=== PATIENT | female | born 1960 | race Caucasian/White ===

== ENCOUNTER 2024-12-04 09:45 | Observation (INO) ==
[2024-12-04 11:23] LABS: Basophils # (auto) 0.06 K/uL (0.00-0.20); Basophils % (auto) 0.4 %; Eosinophils # (auto) 0.02 K/uL (0.00-0.50); Eosinophils % (auto) 0.1 %; Hematocrit (blood only) 37.5 % (37.0-47.0); Hemoglobin 11.7 g/dl (12.0-16.0); Immature Granulocytes # (auto) 0.08 K/uL (0.01-0.20); Immature Granulocytes % (auto) 0.5 %; Lymphocytes # (auto) 0.88 K/uL (1.20-3.40); Mean Corpuscular Hemoglobin 25.5 pg (25.0-34.0); Mean Corpuscular Hgb Conc 31.2 g/dL (32.0-36.0); Mean Corpuscular Volume 81.7 fL (80.0-100.0); Mean Platelet Volume 8.3 fL (9.4-12.4); Monocytes # (auto) 0.61 K/uL (0.11-0.59); Monocytes % (auto) 4.2 %; Neutrophils # (auto) 12.95 K/uL (1.40-6.50); Neutrophils % (auto) 88.8 %; Platelet Count 716 K/uL (130-400); RDW Coefficient of Variation 13.1 % (11.5-14.5); RDW Standard Deviation 38.5 fL (36.4-46.3); Red Blood Count 4.59 M/uL (4.20-5.40)
[2024-12-04 11:35] LABS: Albumin Globulin Ratio 1.1 (0.9-2); Albumin Level 3.5 gm/dl (3.4-5.0); BUN Creatinine Ratio 15.9 (10-20); Bilirubin,Total 0.6 mg/dl (0.2-1.0); Creatinine Clr Calc Pharmacy 54.1 ml/min; Globulin 3.1 gm/dl (2.5-4.0); Potassium 4.1 mmol/L (3.5-5.1); Total Protein 6.6 gm/dl (6.0-8.3)
--- NOTE | 2024-12-04 12:26 | Emergency Department Note ---
Impression & Plan Peritoneal carcinomatosis, Abdominal ascites, Type II endoleak of aortic graft, History of AAA (abdominal aortic aneurysm) repair ED Provider Note NAME: MARK HANSEN AGE: 64 SEX: F : 1960 ARRIVES VIA: Walk-In INFORMANT: Patient, Daughter ED PROVIDER(S): Drew Garcia MD CHIEF COMPLAINT: Abdominal swelling MEDICAL DECISION MAKING: Patient presents due to concern for abdominal swelling. IV was established and blood work was obtained along with CT abdomen pelvis. The patient's blood work shows a white count of 14 with an mild anemia hemoglobin 11.7 with a platelet count of 716. Kidney function unremarkable. Patient's CT abdomen and pelvis does show concern for ascites as well as carcinomatosis and possible right adnexal ovarian lesion which may represent primary tumor. Also associated bifurcated aortic iliac stent in place no evidence of rupture and suspected type II endoleak. Patient reportedly does have a known history of the type II endoleak. I did speak with on-call vascular surgeon Dr. Winters who stated less there is enlargement of the prior sac this does not require any acute intervention or transfer. I did convey the findings to the patient and patient's daughter at bedside and given the new diagnosis would benefit from admission. I did speak with the on-call hospitalist service BLANCHE Plummer PA-C and Dr. Clemente and the patient was admitted to the medicine service. Discussion w/ other healthcare providers: Dr. Winters vascular surgery BLANCHE Plummer PA-C and Dr. Carrasco inpatient medicine service Prior /Outside records reviewed: I did review a CT angiography of the abdomen and pelvis that was completed on November 29 with report noting endovascular repair of infrarenal AAA with a type II endoleak and moderate ascites. Differential diagnosis: Appendicitis, ovarian cyst, ovarian torsion, ectopic , TOA, PID, diverticulitis, UTI, obstruction, inflammatory bowel disease, renal colic, PUD, pancreatitis, biliary pathology, hernia, volvulus, constipation, as well as other pathologies were considered. Diagnostics, as interpreted by me: ECG: Sinus tachycardia, rate of 101, normal intervals. Cardiac monitoring: An order was placed for continuous cardiac monitoring. The monitor shows a rate of 85 with sinus rhythm. Patient was placed on pulse oximetry Medical decision rules: None Imaging studies: I informally interpreted the patient's CT abdomen pelvis that showed concern for abdominal ascites with formal report to follow. HPI: Patient presents due to concern for abdominal swelling. The patient had been seen in [place] and was referred to a larger department but did not come at that time. The patient states that she has been having worsening diarrhea. No reported falls or trauma. The daughter is at bedside states that the patient has had increasing abdominal swelling. No prior history of alcohol use or liver disease. No prior paracentesis. Patient had been seen at [facility] in [place] on Wednesday and was suggested to go to another emergency department. Patient states that she is on chronic MiraLAX. Patient does report a prior history of a AAA status postrepair which she says "leaks." PAST MEDICAL HISTORY: See Below PAST SURGICAL HISTORY: See Below SOCIAL HISTORY: See Below HOME MEDICATIONS: See Below ALLERGIES: See Below VITALS: See Below PHYSICAL EXAMINATION: GENERAL: NAD, non-toxic. Wearing glasses. EYE EXAM: Normal conjunctiva. PERRL, no anisocoria and EOM's grossly intact w/o pain. OROPHARYNX: Moist mucus membranes, grossly normal dentition. NECK: Trachea midline, no stridor. Supple, no nuchal rigidity, no adenopathy, non-tender. No signs of meningismus. FROM of the neck with good chin to chest and neck extension. LUNGS: Clear to auscultation. Normal chest wall mechanics. HEART: NSR, no MRG. ABDOMEN: Significant abdominal distention, soft abdomen, positive fluid wave. BACK: No CVA TTP. SKIN: No rashes and no bruising. UPPER EXTREMITIES: Upper extremities are grossly normal. LOWER EXTREMITIES: Grossly normal, no edema. NEURO EXAM: A&O x3, cranial nerves II-XII grossly intact, normal speech, moves all 4 extremities. Past Med/Surg History Problem List (Updated 12/05/24 @ 20:43 by Drew Garcia MD) History of AAA (abdominal aortic aneurysm) repair (Acute) Peritoneal carcinomatosis (Acute) Type II endoleak of aortic graft (Acute) Abdominal ascites (Acute) Social History Smoking Status: Former smoker Tobacco Type: Cigarettes Hx Alcohol Use: No Hx Substance Use: No Preferred Language: Ivorian Communication Ability: Effective Promotions Executive Producer Required: No Beliefs That Will Affect Care: None Current Living Situation: Family Current Living Situation Comment: pt states she is currently living with her daughter, normally lives alone Feels Safe at Home: Yes Safety Concerns: Feels Safe At This Time Assistive Devices: None Allergies Allergies Allergy/AdvReac Type Severity Reaction Status Date / Time Sulfa (Sulfonamide AdvReac Unknown Verified 12/04/24 15:32 Antibiotics) Home Meds Home Medications Medication Instructions Recorded Confirmed amlodipine 2.5 mg tablet 2.5 mg PO QPM 12/04/24 12/04/24 clopidogrel 75 mg tablet 75 mg PO DAILY 12/04/24 12/04/24 duloxetine 60 mg capsule,delayed 60 mg PO DAILY 12/04/24 12/04/24 release lorazepam 0.5 mg tablet 0.25 - 0.5 mg PO BID PRN Anxiety 12/04/24 12/04/24 losartan 100 mg tablet 100 mg PO DAILY 12/04/24 12/04/24 metoprolol tartrate 25 mg tablet 25 mg PO BID 12/04/24 12/04/24 rosuvastatin 20 mg tablet 20 mg PO DAILY 12/04/24 12/04/24 Results & Data (ED) Vital Signs Vital Signs - 24 hr 12/04/24 09:57 12/04/24 11:51 12/04/24 11:54 Temperature 36.9 C Temperature Source Oral Pulse Rate 72 Pulse Rate [Right Finger] 98 H Respiratory Rate 20 20 Respiratory Effort / Characteristics Non-Labored Spontaneous Non-Labored Spontaneous Respiratory Depth Normal Normal Respiratory Pattern Regular Regular Blood Pressure 139/88 Blood Pressure [Right Arm] 156/91 H Blood Pressure Mean 105 Blood Pressure Mean [Right Arm] 112 Pulse Oximetry 99 99 Oxygen Delivery Method Room Air Room Air Room Air Sepsis Recent Fever Within 48 Hours No Sepsis New/Unexplained Change in Mental Status N/A Sepsis Action Taken by Nursing No Action Required 12/04/24 11:58 Temperature Temperature Source Pulse Rate 97 H Pulse Rate [Right Finger] Respiratory Rate Respiratory Effort / Characteristics Respiratory Depth Respiratory Pattern Blood Pressure Blood Pressure [Right Arm] Blood Pressure Mean Blood Pressure Mean [Right Arm] Pulse Oximetry Oxygen Delivery Method Sepsis Recent Fever Within 48 Hours Sepsis New/Unexplained Change in Mental Status Sepsis Action Taken by Assisted Medications Current Medication List: was personally reviewed by me Laboratory Data Attestation: I reviewed the patient's lab results. 12/05/24 06:59 12/05/24 06:59 Lab Results 12/04/24 12/04/24 Range/Units 10:57 15:54 WBC 14.60 H (4.8-10.8) K/ul RBC 4.59 (4.20-5.40) M/uL Hgb 11.7 L (12.0-16.0) g/dl Hct 37.5 (37.0-47.0) % MCV 81.7 (80.0-100.0) fL MCH 25.5 (25.0-34.0) pg MCHC 31.2 L (32.0-36.0) g/dL RDW Std Deviation 38.5 (36.4-46.3) fL RDW Coeff of Sera 13.1 (11.5-14.5) % Plt Count 716 H (130-400) K/uL MPV 8.3 L (9.4-12.4) fL Immature Gran % (Auto) 0.5 % Neut % (Auto) 88.8 % Lymph % (Auto) 6.0 % [place] % (Auto) 4.2 % Eos % (Auto) 0.1 % Baso % (Auto) 0.4 % Neut # (Auto) 12.95 H (1.40-6.50) K/uL Lymph # (Auto) 0.88 L (1.20-3.40) K/uL [place] # (Auto) 0.61 H (0.11-0.59) K/uL Eos # (Auto) 0.02 (0.00-0.50) K/uL Baso # (Auto) 0.06 (0.00-0.20) K/uL Immature Gran # (Auto) 0.08 (0.01-0.20) K/uL Sodium 137 (136-145) mmol/L Potassium 4.1 (3.5-5.1) mmol/L Chloride 101 (98-107) mmol/L Carbon Dioxide 25 (21-32) mmol/L Anion Gap 11 (3-11) BUN 13 (6-23) mg/dl Creatinine 0.82 (0.6-1.2) mg/dl Est Cr Clr Drug Dosing 54.1 ml/min eGFR 79.33 BUN/Creatinine Ratio 15.9 (10-20) Glucose 93 (70-99(Fasting)) mg/dl Calcium 9.0 (8.6-10.3) mg/dl Total Bilirubin 0.6 (0.2-1.0) mg/dl AST 17 (13-39) U/L ALT 8 (7-52) U/L Alkaline Phosphatase 89 (34-104) U/L Total Protein 6.6 (6.0-8.3) gm/dl Albumin 3.5 (3.4-5.0) gm/dl Globulin 3.1 (2.5-4.0) gm/dl Albumin/Globulin Ratio 1.1 (0.9-2) CA 125 Antigen Cancelled Administered Medications Amlodipine Besylate (Amlodipine Besylate 5 Mg Tab) 2.5 mg PO QPM JAX Stop: 01/03/25 20:59 Last Admin: 12/05/24 20:10 Dose: 2.5 mg Documented By: Admin: 12/04/24 21:24 Dose: 2.5 mg Documented By: LYNDA Clopidogrel Bisulfate (Clopidogrel Bisulfate 75 Mg Tab) 75 mg PO DAILY JAX Stop: 01/04/25 08:59 Last Admin: 12/05/24 08:15 Dose: 75 mg Documented By: ROBERTO Duloxetine HCl (Duloxetine Hcl 60 Mg Cap) 60 mg PO DAILY JAX Stop: 01/04/25 08:59 Last Admin: 12/05/24 08:15 Dose: 60 mg Documented By: ROBERTO Lorazepam (Lorazepam 0.5 Mg Tab) 0.5 mg PO BID PRN PRN Reason: Anxiety Stop: 01/03/25 18:29 Last Admin: 12/05/24 10:51 Dose: 0.5 mg Documented By: Admin: 12/04/24 22:56 Dose: 0.5 mg Documented By: EARLE Losartan Potassium (Losartan Potassium 50 Mg Tab) 100 mg PO DAILY JAX Stop: 01/04/25 08:59 Last Admin: 12/05/24 08:16 Dose: 100 mg Documented By: ROBERTO Metoprolol Tartrate (Metoprolol Tartrate 25 Mg Tab) 25 mg PO BID JAX Stop: 01/03/25 20:59 Last Admin: 12/05/24 20:10 Dose: 25 mg Documented By: Admin: 12/05/24 08:15 Dose: 25 mg Documented By: Admin: 12/04/24 21:24 Dose: 25 mg Documented By: LYNDA Rosuvastatin Calcium (Rosuvastatin Calcium 20 Mg Tab) 20 mg PO DAILY JAX Stop: 01/04/25 08:59 Last Admin: 12/05/24 08:15 Dose: 20 mg Documented By: ROBERTO Discontinued Medications Sodium Chloride (Nss) 1,000 mls @ 999 mls/hr IV .Q1H1M ONE Stop: 12/04/24 13:57 Last Infusion: 12/04/24 14:38 Dose: Infused Documented By: Admin: 12/04/24 13:21 Dose: 999 mls/hr Documented By: BRIJESH Ioversol (Optiray 320 100ml) 93 ml IV ONCE ONE Stop: 12/04/24 13:29 Last Admin: 12/04/24 13:29 Dose: 93 ml Documented By: MING Ioversol (Optiray 320 100ml) 93 ml IV ONCE ONE Stop: 12/05/24 20:26 Last Admin: 12/05/24 20:26 Dose: 93 ml Documented By: MYRIAM Ondansetron HCl (Ondansetron Inj 2 Mg/Ml 2 Ml Vial) 4 mg IV NOW STA Stop: 12/05/24 10:45 Last Admin: 12/05/24 10:51 Dose: 4 mg Documented By: ROBERTO Imaging Data Radiologist's Impression: Abdomen/Pelvis CT 12/04/24 12:56 CT OF THE ABDOMEN AND PELVIS WITH CONTRAST CLINICAL HISTORY: Abdominal distention. COMPARISON STUDY: None. TECHNIQUE: Following IV administration of 93 mL of Optiray, axial images of the abdomen and pelvis were obtained from the lung bases to the proximal femurs. Images were reviewed in the axial, sagittal, and coronal planes. IV contrast was administered without complication. Automated exposure control was utilized for the study. A dose lowering technique was utilized adhering to the principles of ALARA. CT DOSE: 600.03 mGy.cm FINDINGS: A moderate sized hiatal hernia contains ascites. Large volume of abdominal and pelvic ascites is noted. Extensive peritoneal and omental nodularity is present with omental caking. A right adnexal enhancing mass measures 5.2 x 4.1 cm. There is no hydronephrosis. There is no evidence for a bowel obstruction. Multifocal left renal scarring is present. A 6 mm hypodense lateral segment hepatic lesion is likely benign. There is no biliary or pancreatic ductal dilatation. The spleen, adrenal glands and pancreas are unremarkable. Bifurcated aortoiliac stent graft is in place. There is no evidence for rupture. The aneurysm sac measures 5.3 x 4.9 cm in dimension. Hyperdense foci within the aneurysm sac favor an endoleak. No suspicious lesions are identified within the visualized skeletal structures. IMPRESSION: 1. Large volume ascites. Numerous enhancing peritoneal nodules and omental caking. The findings are consistent with peritoneal carcinomatosis. 5.2 x 4.1 cm rim-enhancing right adnexal/ovarian lesion may represent the primary tumor. Oncology consultation is recommended. 2. No evidence for a bowel obstruction. No hydronephrosis. 3. Bifurcated aortoiliac stent graft in place. No evidence for rupture. Suspected type II endoleak. ACT 112: Positive. There are findings on this exam that require communication between the performing entity and the patient following Patient Test Result Information Act ([place] Act 112) guidelines. Electronically signed by: Bal Freire M.D. 12/04/2024 1:58 PM Chest X-Ray 12/04/24 15:54 Chest radiograph, one view History: Chest pain Comparison: None Findings: Single AP view of the chest performed. No focal consolidation or pleural effusion. No pneumothorax. The cardiomediastinal silhouette is within normal limits. Normal pulmonary vascularity. No evidence for lymphadenopathy. No visualized bony or soft tissue abnormality. Impression: Normal chest radiograph Electronically signed by Mikal Wade 12-04-2024 4:33 PM Discharge Plan Visit Data Chief Complaint: GI Assessment Stated Complaint: ABD DISTENTION, HAS ASCITES ED Provider: Drew Garcia Discharge Problem: Peritoneal carcinomatosis, Abdominal ascites, Type II endoleak of aortic graft, History of AAA (abdominal aortic aneurysm) repair Patient Disposition: Admitted As Inpatient Discharge Instructions Interventions: ED Discharge Assessment Last Done: 12/04/24 18:30 Discharge Problem: Abdominal ascites Qualifiers: Ascites type: malignant Qualified Code(s): R18.0 - Malignant ascites
[2024-12-04] MEDS: SODIUM CHLORIDE 0.9% 1,000 ML IV ONE (13:21)
[2024-12-04] MEDS: OPTIRAY 320 100ml IV ONE (13:29)
--- NOTE | 2024-12-04 13:59 | CT Scan Report ---
CT OF THE ABDOMEN AND PELVIS WITH CONTRAST CLINICAL HISTORY: Abdominal distention. COMPARISON STUDY: None. TECHNIQUE: Following IV administration of 93 mL of Optiray, axial images of the abdomen and pelvis we re obtained from the lung bases to the proximal femurs. Images were reviewed in the axial, sagittal, and coronal planes. IV contrast was administered without complication. Automated exposure control wa s utilized for the study. A dose lowering technique was utilized adhering to the principles of ALARA . CT DOSE: 600.03 mGy.cm FINDINGS: A moderate sized hiatal hernia contains ascites. Large volume of abdominal and pelvic ascit es is noted. Extensive peritoneal and omental nodularity is present with omental caking. A right adne xal enhancing mass measures 5.2 x 4.1 cm. There is no hydronephrosis. There is no evidence for a patrick l obstruction. Multifocal left renal scarring is present. A 6 mm hypodense lateral segment hepatic le tiffany is likely benign. There is no biliary or pancreatic ductal dilatation. The spleen, adrenal gland s and pancreas are unremarkable. Bifurcated aortoiliac stent graft is in place. There is no evidence for rupture. The aneurysm sac measures 5.3 x 4.9 cm in dimension. Hyperdense foci within the aneurysm sac favor an endoleak. No suspicious lesions are identified within the visualized skeletal structure s. IMPRESSION: 1. Large volume ascites. Numerous enhancing peritoneal nodules and omental caking. The findings are c onsistent with peritoneal carcinomatosis. 5.2 x 4.1 cm rim-enhancing right adnexal/ovarian lesion may represent the primary tumor. Oncology consultation is recommended. 2. No evidence for a bowel obstruction. No hydronephrosis. 3. Bifurcated aortoiliac stent graft in place. No evidence for rupture. Suspected type II endoleak. ACT 112: Positive. There are findings on this exam that require communication between the performing entity and the patient following Patient Test Result Information Act ([place] Act 112) guidelines. Electronically signed by: Bal Freire M.D. 12/04/2024 1:58 PM
--- NOTE | 2024-12-04 15:15 | History & Physical Report ---
Date of Service December 04, 2024 Assessment & Plan (1) Peritoneal carcinomatosis: (2) Abdominal ascites: (3) Type II endoleak of aortic graft: (4) History of AAA (abdominal aortic aneurysm) repair: Plan Edie is a pleasant 64-year-old female with PMH of HTN, HLD, TIA x 2 (on Plavix), and AAA repair. She presented on 12/04 for ascites. Patient was at [facility] in [place] yesterday on 12/03, but told to come to a larger ED because they could not treat her there. Patient has had "fluid buildup" in her stomach since early October. She is lost her appetite, and has had significant weight loss. Lost 30 pounds over the past year; 10 to 15 pounds over the past few weeks. She was also had vaginal spotting. Daughter (Violeta) at bedside reports that, since , her stomach has "doubled in size". #Abdominal ascites/peritoneal carcinomatosis Clinically, patient denies any abdominal pain on admission; low concern for SBP, however elevated WBC at 14 on admission A/P CT revealed abdominal ascites and findings consistent with peritoneal carc inomatosis; ovarian lesion might represent primary tumor Patient/daughter report she was scanned in the ED at [facility] this week Prior to this, no known h/o malignancy Oncology consult appreciated Supportive care CXR, EKG ordered, pending Coag panel ordered, pending CA 125 level ordered, pending Therapeutic/diagnostic IR paracentesis planned for the morning of 12/05 N.p.o. at midnight #Endoleak/history of AAA repair AAA repair at [facility] in August 2022 A/P CT revealed bifurcated aortoiliac stent graft without evidence of rupture; suspected type II endoleak ED did reach out to vascular surgery, who confirmed no acute intervention at this time [facility] Full code Regular diet, then n.p.o. at midnight VTE PPx: SCDs prior to paracentesis History of Present Illness Chief Complaint: GI assessment Primary Care Provider: Ashley Dueñas PA-C Edie is a pleasant 64-year-old female with PMH of HTN, HLD, TIA x 2 (on Plavix), and AAA repair. She presented on 12/04 for ascites. Patient was at [facility] in [place] yesterday on 12/03, but told to come to a larger ED because they could not treat her there. Patient has had "fluid buildup" in her stomach since early October. She is lost her appetite, and has had significant weight loss. Lost 30 pounds over the past year; 10 to 15 pounds over the past few weeks. She was also had vaginal spotting. Daughter (Violeta) at bedside reports that, since , her stomach has "doubled in size". Patient also has history of AAA in August 2022 at [facility] with Dr. Phelps; has a known endoleak; she has been told in the past that it is "leaking but stable". Additional symptoms include trouble eating and drinking, night sweats, diarrhea, and abdominal pressure. Patient took her regular morning medicines today; no recent change in medications. She was previously on aspirin for history of TIAs, but had to stop taking aspirin due to bruising; she currently takes Plavix. No prior family history of cancer. Patient denies alcohol use. She is a former smoker, but quit in 2015. Patient is hypertensive at 141/85 and tachycardic around 100 bpm at time of admission; vitals otherwise stable. ED course: NSS 1000 mL IV ROS: Patient endorses night-sweats, weight loss (30lb over months; 10-15lb over 2 weeks), no appetite, abdominal pressure, diarrhea (which patient attributes to laxative), difficulty voiding, and spotting. Patient denies chest pain, SOB, cough, pleuritic CP, cough, abdominal pain, N/V, blood in urine/stool, saddle anesthesia, urinary incontinence, or numbness/tingling in the arms or legs. Allergies Allergy/AdvReac Type Severity Reaction Status Date / Time Sulfa (Sulfonamide AdvReac Unknown Verified 12/04/24 15:32 Antibiotics) Home Medications Medication Instructions Recorded Confirmed Type amlodipine 2.5 mg tablet 2.5 mg PO QPM 12/04/24 12/04/24 History clopidogrel 75 mg tablet 75 mg PO DAILY 12/04/24 12/04/24 History duloxetine 60 mg capsule,delayed 60 mg PO DAILY 12/04/24 12/04/24 History release lorazepam 0.5 mg tablet 0.25 - 0.5 mg PO BID PRN Anxiety 12/04/24 12/04/24 History losartan 100 mg tablet 100 mg PO DAILY 12/04/24 12/04/24 History metoprolol tartrate 25 mg tablet 25 mg PO BID 12/04/24 12/04/24 History rosuvastatin 20 mg tablet 20 mg PO DAILY 12/04/24 12/04/24 History Past Med/Surg History Problem List (Updated 12/04/24 @ 16:28 by True Plummer PA-C) History of AAA (abdominal aortic aneurysm) repair Peritoneal carcinomatosis Type II endoleak of aortic graft Abdominal ascites Social History Smoking Status: Former smoker Tobacco Type: Cigarettes Feels Safe at Home: Yes Review of Systems Review of Systems: See HPI above Physical Exam Physical Exam: General: no acute distress; pleasant affect; tearful; daughter at bedside; non- toxic appearing; frail appearing; cooperative; SpO2 97% on RA HEENT: normocephalic, atraumatic; no scleral icterus; PERRLA; vision and hearing grossly intact Neck: supple; no lymphadenopathy; trachea midline Skin: warm, dry without signs of tenting; no cyanosis; no rashes, bruising, lesions, or erythema noted CV: chest wall NTP; RRR; S1/S2 normal; no murmurs/rubs/gallops; pulses intact and symmetric at radial, DP, and PT Lungs: no acute respiratory distress; symmetrical chest wall expansion; clear breath sounds across all lung hadley w/o adventitious sounds; no wheezing ABD: Soft, NTP in all 4 quadrants; BS present; no rebound/guarding; distention secondary to ascites; positive fluid wave on exam; no rashes or bruising appreciated on the abdomen or flanks bilaterally MSK: no tics or fasciculations; no edema noted in the LEs b/l, nonerythematous Neuro: A&Ox3; normal mood and affect; fluent speech; no focal deficits; sensation grossly intact in the LEs b/l Results & Data Results & Data Vital Signs (Past 12 Hours) Vital Signs Temp Pulse Pulse Resp BP BP Pulse Ox 12/04/24 15:00 99 H 22 141/85 H 97 12/04/24 14:00 97 H 23 137/83 91 12/04/24 13:36 100 H 21 12/04/24 13:12 98 H 17 126/86 98 12/04/24 13:00 98 H 22 126/86 96 12/04/24 11:58 97 H 12/04/24 11:54 12/04/24 11:51 98 H 20 156/91 H 99 12/04/24 09:57 36.9 C 72 20 139/88 99 O2 Del Method 12/04/24 15:00 Room Air 12/04/24 14:00 Room Air 12/04/24 13:36 12/04/24 13:12 12/04/24 13:00 Room Air 12/04/24 11:58 12/04/24 11:54 Room Air 12/04/24 11:51 Room Air 12/04/24 09:57 Room Air Laboratory Results Abnormal lab results 12/04/24 Range/Units 10:57 WBC 14.60 H (4.8-10.8) K/ul Hgb 11.7 L (12.0-16.0) g/dl MCHC 31.2 L (32.0-36.0) g/dL Plt Count 716 H (130-400) K/uL MPV 8.3 L (9.4-12.4) fL Neut # (Auto) 12.95 H (1.40-6.50) K/uL Lymph # (Auto) 0.88 L (1.20-3.40) K/uL [place] # (Auto) 0.61 H (0.11-0.59) K/uL Diagnostic Findings Abdomen/Pelvis CT 12/04/24 12:56 CT OF THE ABDOMEN AND PELVIS WITH CONTRAST CLINICAL HISTORY: Abdominal distention. COMPARISON STUDY: None. TECHNIQUE: Following IV administration of 93 mL of Optiray, axial images of the abdomen and pelvis were obtained from the lung bases to the proximal femurs. Images were reviewed in the axial, sagittal, and coronal planes. IV contrast was administered without complication. Automated exposure control was utilized for the study. A dose lowering technique was utilized adhering to the principles of ALARA. CT DOSE: 600.03 mGy.cm FINDINGS: A moderate sized hiatal hernia contains ascites. Large volume of abdominal and pelvic ascites is noted. Extensive peritoneal and omental nodularity is present with omental caking. A right adnexal enhancing mass measures 5.2 x 4.1 cm. There is no hydronephrosis. There is no evidence for a bowel obstruction. Multifocal left renal scarring is present. A 6 mm hypodense lateral segment hepatic lesion is likely benign. There is no biliary or pancreatic ductal dilatation. The spleen, adrenal glands and pancreas are unremarkable. Bifurcated aortoiliac stent graft is in place. There is no evidence for rupture. The aneurysm sac measures 5.3 x 4.9 cm in dimension. Hyperdense foci within the aneurysm sac favor an endoleak. No suspicious lesions are identified within the visualized skeletal structures. IMPRESSION: 1. Large volume ascites. Numerous enhancing peritoneal nodules and omental caking. The findings are consistent with peritoneal carcinomatosis. 5.2 x 4.1 cm rim-enhancing right adnexal/ovarian lesion may represent the primary tumor. Oncology consultation is recommended. 2. No evidence for a bowel obstruction. No hydronephrosis. 3. Bifurcated aortoiliac stent graft in place. No evidence for rupture. Suspected type II endoleak. ACT 112: Positive. There are findings on this exam that require communication between the performing entity and the patient following Patient Test Result Information Act ([place] Act 112) guidelines. Electronically signed by: Bal Freire M.D. 12/04/2024 1:58 PM ECG Additional Comments: ECG revealed Code Status & VTE Plan Code Status Full code VTE Prophylaxis Plan VTE Prophylaxis will be ordered: Yes Supervising Physician Co-Signing Physician Notes The patient was seen by me. The chart was reviewed. Case discussed with ALDO Szymanski. Agree with assessment and plan PG Care Time/CCT Total # of Minutes Spent Total Time Spent with Patient: Total time spent is greater than 50% in coordination of care (as documented) at patient's floor/unit and/or counseling patient: [place] [address] INT INP/OBS CARE 3/75MIN Patient Type New Medical Decision Making High Complexity Diagnoses Peritoneal carcinomatosis C78.6 Abdominal ascites R18.8 Type II endoleak of aortic graft I97.89 History of AAA (abdominal aortic aneurysm) repair Z98.890
--- NOTE | 2024-12-04 16:33 | XRay Report ---
Chest radiograph, one view History: Chest pain Comparison: None Findings: Single AP view of the chest performed. No focal consolidation or pleural effusion. No pneumothorax. The cardiomediastinal silhouette is within normal limits. Normal pulmonary vascularity. No evidence for lymphadenopathy. No visualized bony or soft tissue abnormality. Impression: Normal chest radiograph Electronically signed by Mikal Wade 12-04-2024 4:33 PM
[2024-12-04 17:34] LABS: INR 1.1 (0.9-1.1); Partial Thromboplastin Ratio 1.1; Partial Thromboplastin Time 29 Seconds (21-31); Prothrombin Time 11.6 Seconds (9.0-12.0)
[2024-12-04] MEDS ORDERED: ACETAMINOPHEN 325 MG TAB PO PRN (18:30)
[2024-12-04] MEDS: METOPROLOL TARTRATE 25 MG TAB PO SCH (21:24)
[2024-12-04] MEDS: amLODIPine BESYLATE 5 MG TAB PO SCH (21:24)
[2024-12-04] MEDS: LORazepam 0.5 MG TAB PO PRN (22:56)
[2024-12-05 07:19] LABS: Basophils # (auto) 0.06 K/uL (0.00-0.20); Basophils % (auto) 0.5 %; Eosinophils # (auto) 0.08 K/uL (0.00-0.50); Eosinophils % (auto) 0.7 %; Hematocrit (blood only) 32.2 % (37.0-47.0); Hemoglobin 10.5 g/dl (12.0-16.0); Immature Granulocytes # (auto) 0.05 K/uL (0.01-0.20); Immature Granulocytes % (auto) 0.4 %; Lymphocytes # (auto) 1.12 K/uL (1.20-3.40); Lymphocytes % (auto) 9.7 %; Mean Corpuscular Hemoglobin 26.5 pg (25.0-34.0); Mean Corpuscular Hgb Conc 32.6 g/dL (32.0-36.0); Mean Corpuscular Volume 81.3 fL (80.0-100.0); Mean Platelet Volume 8.3 fL (9.4-12.4); Monocytes # (auto) 0.82 K/uL (0.11-0.59); Monocytes % (auto) 7.1 %; Neutrophils # (auto) 9.45 K/uL (1.40-6.50); Neutrophils % (auto) 81.6 %; Platelet Count 611 K/uL (130-400); RDW Standard Deviation 38.4 fL (36.4-46.3); Red Blood Count 3.96 M/uL (4.20-5.40); White Blood Count 11.58 K/ul (4.8-10.8)
--- NOTE | 2024-12-05 07:54 | Oncology Consultation ---
Date of Consultation December 05, 2024 Assessment & Plan (1) Peritoneal carcinomatosis: (2) Abdominal ascites: Plan 64-year-old female with suspected ovarian cancer. Awaiting cytology results from paracentesis performed today. CA125 also pending. CEA within normal limits. -Obtain CT chest for full staging. -If cytology confirms ovarian cancer and CT chest does not demonstrate metastasis she will need to be evaluated by [employer] oncology but in the meantime I will plan to start neoadjuvant chemotherapy prior to cytoreductive surgery. Patient and daughter agreed with above plan. I will set her up for outpatient follow-up with me History of Present Illness Reason for Consultation: Suspected ovarian cancer Attending Physician: Beck Carrasco MD History of Present Illness 64-year-old female admitted to [facility] on 12/04/2024 after presenting with weight loss, abdominal distention due to ascites and fatigue. CT abdomen and pelvis on 12/04/2024 revealed large volume ascites with numerous enhancing peritoneal nodules and omental caking consistent with peritoneal carcinomatosis, 5.2 x 4.1 cm rim-enhancing right adnexal/ovarian lesion may represent primary tumor, bifurcated aortoiliac stent graft in place with no evidence of rupture, suspected type II endoleak. She underwent diagnostic and therapeutic paracentesis earlier today with removal of 3 L of ascitic fluid. She states that she is feeling much better since she had paracentesis. Denies any family history of breast, ovarian or prostate malignancy. Allergies Allergy/AdvReac Type Severity Reaction Status Date / Time Sulfa (Sulfonamide AdvReac Unknown Verified 12/04/24 15:32 Antibiotics) Home Medications Medication Instructions Recorded Confirmed Type amlodipine 2.5 mg tablet 2.5 mg PO QPM 12/04/24 12/04/24 History clopidogrel 75 mg tablet 75 mg PO DAILY 12/04/24 12/04/24 History duloxetine 60 mg capsule,delayed 60 mg PO DAILY 12/04/24 12/04/24 History release lorazepam 0.5 mg tablet 0.25 - 0.5 mg PO BID PRN Anxiety 12/04/24 12/04/24 History losartan 100 mg tablet 100 mg PO DAILY 12/04/24 12/04/24 History metoprolol tartrate 25 mg tablet 25 mg PO BID 12/04/24 12/04/24 History rosuvastatin 20 mg tablet 20 mg PO DAILY 12/04/24 12/04/24 History Patient History Social History Smoking Status: Former smoker Tobacco Type: Cigarettes Hx Alcohol Use: No Hx Substance Use: No Preferred Language: Sami Communication Ability: Effective [employer] Required: No Beliefs That Will Affect Care: None Current Living Situation: Family Current Living Situation Comment: pt states she is currently living with her daughter, normally lives alone Feels Safe at Home: Yes Safety Concerns: Feels Safe At This Time Assistive Devices: None Results & Data Vital Signs (Past 12 Hours) Vital Signs Temp Pulse Pulse Resp BP Pulse Ox O2 Del Method 12/05/24 07:44 36.8 C 107 H 16 144/85 H 93 Room Air 12/05/24 05:43 100 H 12/05/24 03:34 36.9 C 100 H 17 132/83 95 Room Air 12/04/24 23:12 36.8 C 83 18 165/89 H 97 Room Air 12/04/24 23:07 84 12/04/24 22:00 80 18 145/91 H 96 Room Air 12/04/24 20:00 37.1 C 98 H 18 148/90 H 94 Room Air
[2024-12-05 08:06] LABS: INR 1.1 (0.9-1.1); Prothrombin Time 11.5 Seconds (9.0-12.0)
[2024-12-05 08:12] LABS: BUN Creatinine Ratio 17.2 (10-20); Calcium 8.5 mg/dl (8.6-10.3); Creatinine Clr Calc Pharmacy 69.3 ml/min; Potassium 3.7 mmol/L (3.5-5.1)
[2024-12-05] MEDS: ROSUVASTATIN CALCIUM 20 MG TAB PO SCH (08:15)
[2024-12-05] MEDS: CLOPIDOGREL BISULFATE 75 MG TAB PO SCH (08:15)
[2024-12-05] MEDS: DULoxetine HCL 60 MG CAP PO SCH (08:15)
[2024-12-05] MEDS: LOSARTAN POTASSIUM 50 MG TAB PO SCH (08:16)
[2024-12-05] MEDS: ONDANSETRON INJ 2 MG/ML 2 ML VIAL IV STA (10:51)
[2024-12-05 12:38] LABS: Appearance Peritoneal Fluid Hazy; Color Peritoneal Fluid Yellow; RBC Peritoneal Fluid Auto 2000 /uL; WBC Peritoneal Fluid Auto 1683 /ul (0-300)
--- NOTE | 2024-12-05 12:43 | Ultrasound Report ---
ULTRASOUND-GUIDED PARACENTESIS CLINICAL HISTORY: Ascites PROCEDURE: Procedure and risks were explained. Informed consent was obtained. A final timeout was com pleted. The abdomen was prepped and draped in sterile fashion. 1% lidocaine was utilized for skin ane sthesia. Utilizing ultrasound guidance, a 5 Turkish safety centesis catheter was advanced into the left lower q uadrant pocket of ascites. Ultrasound images were obtained. A total of 3 L of ascites fluid was remov ed with 1 L sent to the lab. The catheter was removed and Band-Aid applied. The patient tolerated the procedure well. Vital signs will be monitored postprocedure. IMPRESSION: Ultrasound-guided paracentesis as above. Performed, dictated, and signed by Preston Cartagena PA-C; to be co-signed by Dr. Demetris Shah. Electronically signed by: Demetris Shah M.D. 12/05/2024 1:20 PM
[2024-12-05 13:07] LABS: Lymphocytes, Fluid 43 %; Mono,Macrophage,Mesothelial 34 %; Neutrophils, Fluid 23 %
[2024-12-05 13:09] LABS: Albumin Peritoneal Fluid 2.1 gm/dl; Total Protein Peritoneal Fluid 3.6 gm/dl
--- NOTE | 2024-12-05 14:06 | Electrocardiogram Report ---
Test Reason : Blood Pressure : */* mmHG Vent. Rate : 101 BPM Atrial Rate : 101 BPM P-R Int : 128 ms QRS Dur : 100 ms QT Int : 358 ms P-R-T Axes : 76 80 43 degrees QTcB Int : 464 ms Sinus tachycardia Possible Left atrial enlargement Borderline ECG No previous ECGs available Confirmed by Mikal Lynch ([id number]) on 12/05/2024 2:06:33 PM Referred By: REFERRED SELF Confirmed By: Mikal Lynch
--- NOTE | 2024-12-05 14:53 | Hospitalist Progress Note ---
Date of Service December 05, 2024 Assessment & Plan (1) Peritoneal carcinomatosis: Plan: Likely from primary ovarian carcinoma. Paracentesis completed today with approximately 3 L of fluid removed. Pathology report is pending. Oncology consultation requested and pending. She is much more comfortable (2) Abdominal ascites: Plan: Appears to be malignant. She underwent paracentesis earlier today, December 05 with nearly 3 L of fluid removed. Cytology is pending. She appears to be much more comfortable (3) Type II endoleak of aortic graft: Plan: Known. Supportive care (4) History of AAA (abdominal aortic aneurysm) repair: Plan: Known. Supportive care Plan Anticipate discharge to home tomorrow, December 06, with outpatient follow-up with oncology. Admission and Anticipated Discharge Date Admission Date: December 04, 2024 Subjective Alert and oriented. Daughters at the bedside. She underwent paracentesis earlier today, December 05, and had approximately 3 L of fluid removed. Cytology ordered and pending. Oncology consultation ordered and pending. Calcium 125 ordered and pending. Probable discharge to home tomorrow, December 06, with outpatient oncology follow-up for suspected ovarian carcinoma with carcinomatosis and malignant ascites. Review of Systems 2 Review of Systems: Constitutionalno fever or chills ENTno blurred vision, no double vision, no epistaxis, no sore throat Respiratoryno cough, no wheezing, no shortness of breath Cardiacno palpitations, no chest pain, no syncope Ro nausea, vomiting, diarrhea, melena, hematochezia. Less abdominal distention after paracentesis GUno urinary retention, no urinary incontinence, no dysuria, no hematuria Musculoskeletalno joint pain, no muscle tenderness Skinno bruising, no rashes, no pruritus Neurono isolated weakness, no paresthesia, no weakness Psychno depression, no anxiety Physical Exam 2 Physical Exam: General-alert and oriented x3, no fever, no chills HEENT-head atraumatic and normocephalic, pupils equal and reactive to light, extraocular muscles intact Neck-no lymphadenopathy or thyromegaly, trachea midline Chest-clear to auscultation. No rales, wheezing or rhonchi Cardiac-regular rate and rhythm, normal S1 and S2 Abdomen-normal bowel sounds, no hepatosplenomegaly. Less distended after paracentesis Extremities-no cyanosis, clubbing, or edema Neuro-cranial nerves II through XII intact, motor and sensory function within normal limits, strength symmetrical, no focal deficits Psych-normal affect, normal mood Results & Data Results & Data Vital Signs (Past 12 Hours) Vital Signs Temp Pulse Pulse Resp BP Pulse Ox O2 Del Method 12/05/24 07:44 36.8 C 107 H 16 144/85 H 93 Room Air 12/05/24 05:43 100 H 12/05/24 03:34 36.9 C 100 H 17 132/83 95 Room Air Laboratory Results 12/05/24 06:59 12/05/24 06:59 PG Care Time/CCT Total # of Minutes Spent Total Time Spent with Patient: Total time spent is greater than 50% in coordination of care (as documented) at patient's floor/unit and/or counseling patient: Coding Level of Care Code 80213 SUB INP/OBS CARE 2/35MIN Diagnoses Peritoneal carcinomatosis C78.6 Abdominal ascites R18.8 Type II endoleak of aortic graft I97.89 History of AAA (abdominal aortic aneurysm) repair Z98.890
[2024-12-05] MEDS: OPTIRAY 320 100ml IV ONE (20:26)
--- NOTE | 2024-12-05 21:32 | CT Scan Report ---
Exam(s): CT CHEST With Contrast IV Amt: 93ml optiray 320 EXAM: CT Chest With Intravenous Contrast CLINICAL HISTORY: Reason for exam: staging for met cancer. TECHNIQUE: Axial computed tomography images of the chest with intravenous contrast. CTDI is 8.65 mGy and DLP is 318.76 mGy-cm. Automated exposure control was utilized for the study. A dose lowering technique was utilized adhering to the principles of ALARA. CONTRAST: Patient received 93ml optiray 320 of IV contrast COMPARISON: No relevant prior studies available. FINDINGS: Lungs: No suspicious pulmonary nodule. Mild emphysema. Pleural space: No pleural effusion or pneumothorax. Heart: Unremarkable. Mediastinum: Moderate hiatal hernia. Bones/joints: No acute findings. Soft tissues: Unremarkable. Vasculature: Unremarkable. Lymph nodes: Unremarkable. Intraperitoneal space: Ascites in the upper abdomen. IMPRESSION: 1. No metastatic disease identified. 2. Moderate hiatal hernia. 3. Ascites in the upper abdomen. Electronically signed by: Anders Butler MD 12/05/24 21:30 PM
[2024-12-06 03:21] VITALS: O2SAT 94
[2024-12-06 07:55] VITALS: BP 122/75; PULSE 94; RESP 16; TEMP 97.9
[2024-12-06 09:51] LABS: Basophils # (auto) 0.06 K/uL (0.00-0.20); Basophils % (auto) 0.5 %; Eosinophils # (auto) 0.09 K/uL (0.00-0.50); Eosinophils % (auto) 0.8 %; Hematocrit (blood only) 36.4 % (37.0-47.0); Hemoglobin 11.5 g/dl (12.0-16.0); Immature Granulocytes # (auto) 0.04 K/uL (0.01-0.20); Immature Granulocytes % (auto) 0.4 %; Lymphocytes # (auto) 1.17 K/uL (1.20-3.40); Lymphocytes % (auto) 10.6 %; Mean Corpuscular Hemoglobin 25.6 pg (25.0-34.0); Mean Corpuscular Hgb Conc 31.6 g/dL (32.0-36.0); Mean Corpuscular Volume 80.9 fL (80.0-100.0); Mean Platelet Volume 8.3 fL (9.4-12.4); Monocytes # (auto) 0.81 K/uL (0.11-0.59); Monocytes % (auto) 7.3 %; Neutrophils # (auto) 8.88 K/uL (1.40-6.50); Neutrophils % (auto) 80.4 %; Platelet Count 666 K/uL (130-400); RDW Coefficient of Variation 13.1 % (11.5-14.5); RDW Standard Deviation 38.1 fL (36.4-46.3); White Blood Count 11.05 K/ul (4.8-10.8)
[2024-12-06 10:08] LABS: BUN Creatinine Ratio 16.2 (10-20); Calcium 8.5 mg/dl (8.6-10.3); Creatinine Clr Calc Pharmacy 65.2 ml/min; Potassium 3.7 mmol/L (3.5-5.1)
--- NOTE | 2024-12-06 11:15 | Discharge Summary ---
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 Paracentesis completed on 12/05 with approximately 3 L of fluid removed. Pathology report is pending. Oncology consultation and recommendations appreciated. She will follow-up with oncology on an outpatient basis. She is now much more comfortable (2) Abdominal ascites: Appears to be malignant. She underwent paracentesis on December 05 with nearly 3 L of fluid removed. Cytology is pending. 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 Supportive care (4) History of AAA (abdominal aortic aneurysm) repair: Known. Supportive care Plan Home today, December 06. She will follow-up with oncology soon for review of peritoneal fluid cytology results and initiation of chemotherapy Admission HPI Per Admitting Provider Edie is a pleasant 64-year-old female with PMH of HTN, HLD, TIA x 2 (on Plavix), and AAA repair. She presented on 12/04 for ascites. Patient was at [facility] in [place] yesterday on 12/03, but told to come to a larger ED because they could not treat her there. Patient has had "fluid buildup" in her stomach since early October. She is lost her appetite, and has had significant weight loss. Lost 30 pounds over the past year; 10 to 15 pounds over the past few weeks. She was also had vaginal spotting. Daughter (Violeta) at bedside reports that, since , her stomach has "doubled in size". Patient also has history of AAA in August 2022 at [facility] with Dr. Phelps; has a known endoleak; she has been told in the past that it is "leaking but stable". Additional symptoms include trouble eating and drinking, night sweats, diarrhea, and abdominal pressure. Patient took her regular morning medicines today; no recent change in medications. She was previously on aspirin for history of TIAs, but had to stop taking aspirin due to bruising; she currently takes Plavix. No prior family history of cancer. Patient denies alcohol use. She is a former smoker, but quit in 2016. Patient is hypertensive at 141/85 and tachycardic around 100 bpm at time of admission; vitals otherwise stable. ED course: NSS 1000 mL IV ROS: Patient endorses night-sweats, weight loss (30lb over months; 10-15lb over 2 weeks), no appetite, abdominal pressure, diarrhea (which patient attributes to laxative), difficulty voiding, and spotting. Patient denies chest pain, SOB, cough, pleuritic CP, cough, abdominal pain, N/V, blood in urine/stool, saddle anesthesia, urinary incontinence, or numbness/tingling in the arms or legs. Discharge Exam General-alert and oriented x3, no fever, no chills HEENT-head atraumatic and normocephalic, pupils equal and reactive to light, extraocular muscles intact Neck-no lymphadenopathy or thyromegaly, trachea midline Chest-clear to auscultation. No rales, wheezing or rhonchi Cardiac-regular rate and rhythm, normal S1 and S2 Abdomen-normal bowel sounds, no hepatosplenomegaly. Less distended after paracentesis Extremities-no cyanosis, clubbing, or edema Neuro-cranial nerves II through XII intact, motor and sensory function within normal limits, strength symmetrical, no focal deficits Psych-normal affect, normal mood Discharge Plan Discharge Items Patient Disposition: Home - Self-Care Reason For Visit: ABDOMINAL ASCITES Discharge Diagnosis: Suspected ovarian carcinoma with carcinomatosis and malignant ascites Activity: Resume your previous activity Non-emergency contact: Primary Care Provider and Oncologist Call non-emergency contact if: your symptoms worsen Follow-up/Referrals: Ashley Dueñas PA-C [Primary Care Provider] - Diet: Regular Addtl Attending Provider Instructions: Follow-up with oncologist as planned Pending Studies at Discharge: Yes Studies:: Peritoneal fluid cytology, CA125 level Stand-Alone Forms: My [facility], Smoking Cessation Medications and DC Order Prescriptions: Continued amlodipine 2.5 mg tablet 2.5 mg PO QPM clopidogrel 75 mg tablet 75 mg PO DAILY lorazepam 0.5 mg tablet 0.25 - 0.5 mg PO BID PRN (Reason: Anxiety) rosuvastatin 20 mg tablet 20 mg PO DAILY metoprolol tartrate 25 mg tablet 25 mg PO BID duloxetine 60 mg capsule,delayed release(DR/EC) 60 mg PO DAILY losartan 100 mg tablet 100 mg PO DAILY Discharge Orders: Discharge Order (Routine); Ordered 12/06/24 Ordered By: Beck Carrasco Admission Data Admit Date/Time: 12/04/24 16:07 Attending Provider: Beck Carrasco Admit Provider: Beck Carrasco Primary Care Provider: Ashley Dueñas Other Providers: Beck Carrasco; [facility] Stay Data Consultations 12/04/24 15:25 ED Decision to Admit Stat 12/04/24 15:56 Consult Oncology Routine Diagnostic Imagining Performed 12/04/24 12:56 CT abd pelvis IV con only Stat 12/05/24 08:00 IR paracentesis abd w/img US Stat 12/05/24 17:49 CT chest with contrast [CT chest diagnostic w con] Routine Pending Results Patient Have Any Pending Studies at Discharge: Yes Discharge Instructions Given to Patient (Per Discharging Provider) Follow-up with oncologist as planned Total Time Total Time Spent Total Time Spent (In Minutes): 45-minute Coding Level of Care Code 42677 INP/OBS DISCH >30 MIN Diagnoses Peritoneal carcinomatosis C78.6 Abdominal ascites R18.0 Ascites type: malignant Type II endoleak of aortic graft I97.89 History of AAA (abdominal aortic aneurysm) repair Z98.890
== END 2024-12-06 11:51 | disposition home or self-care (01) | DRG 375 ==
LOC: SUATTDRO → ED 09:45 → INTOOBSV 16:07 → EDINP 16:07 → 2N 18:30